=== PATIENT | male | born 1955 | race Caucasian/White ===

== ENCOUNTER 2017-07-20 03:58 | Inpatient (IN) ==
[2017-07-20] MEDS ORDERED: *HR* HYDROcodone/Acet 5/325 mg TABLET PO ONE (04:23)
[2017-07-20] MEDS ORDERED: Aspirin 81 MG TAB.CHEW PO ONE (04:31)
[2017-07-20] MEDS ORDERED: 0.9 % Sodium Chloride 1,000 ML IVC ONE ×3 (04:53→06:23)
[2017-07-20] MEDS ORDERED: *HR* FentaNYL (PF) 100 MCG/2 ML VIAL IVP ONE ×5 (04:55→17:34)
--- NOTE | 2017-07-20 04:58 | Emergency Department Note ---
Disposition Clinical Impression: Community acquired pneumonia Qualifiers: Laterality: right Lung location: lower lobe of lung Qualified Code(s): J18.1 - Lobar pneumonia, unspecified organism Disposition: Admitted As Inpatient Condition: Fair Referrals: Maile Quiroz CNP [Primary Care Provider] - Forms: ED Satisfaction Letter Time of Disposition: 06:15 SOB HPI - General Chief Complaint: ED Shortness of Breath/Dyspnea Stated Complaint: KARMEN Time Seen by Provider: 07/20/17 04:17 Source: patient, EMS Limitations: no limitations Nursing Notes Reviewed: Yes Vital Signs Reviewed: Yes - History of Present Illness Pt Subjective Complaint: shortness of breath Onset (ago): day(s) Context: recent illness (influenz dx two weeks ago) Consistency/Duration: gradually worsening Improves with: oxygen Worsens with: movement, coughing Known history of: other (recent influenza) Associated symptoms: Reports: chest pain (right lateral), pain with inspiration , fever, cough, polyuria, diaphoresis, abdominal pain. Denies: wheezing, sputum production, orthopnea, lower extremity pain, palpitations, hemoptysis, nausea/vomiting Treatment prior to arrival: oxygen, other (EMS) Cough present: Yes Cough Description: Voluntary Cough Frequency: Intermittent Sputum production: No - Related Data Home Medications Medication Instructions Recorded Confirmed Esomeprazole Magnesium [Nexium 20 mg PO DAILY 01/10/17 01/10/17 24Hr] Fish Oil/Dha/Epa [Fish Oil 1,200 1 tab PO DAILY 01/10/17 01/10/17 mg Fish Oil] Mv-Mn/FA/Vit K/Lycop/Lut/Coq10 1 tab PO DAILY 01/10/17 01/10/17 [Daily Multivitamin Capsule] Turmeric Root Extract [Turmeric] 500 mg PO DAILY 01/10/17 01/10/17 Previous Rx's Medication Instructions Recorded OxyCODONE/APAP 5/325 [Percocet 1 each PO Q6HR PRN #14 tablet 01/10/17 5/325 MG] Allergies Allergy/AdvReac Type Severity Reaction Status Date / Time No Known Allergies Allergy Verified 01/10/17 12:27 All systems ED: reviewed and negative except as stated. Review of Systems: As Per HPI Constitutional: Reports: as per HPI Eyes: Denies: eye discharge ENT ED: Denies: throat pain Cardiovascular: Reports: as per HPI Respiratory: Reports: as per HPI Gastrointestinal: Reports: as per HPI. Denies: diarrhea, constipation Genitourinary: Reports: as per HPI, frequency Musculoskeletal: Denies: back pain, neck pain Integumentary: Denies: rash Neurological: Denies: headache Psychiatric: Denies: anxiety Endocrine: Denies: fatigue Hematological/Lymphatic: Denies: easy bleeding Allergic/Immunologic: Denies: facial swelling Past Medical History - Past Medical History Medical history: Reports: cancer, other Psychiatric history: Reports: no psych history - Social History Smoking Status: Never smoker Smokeless Tobacco Status: No Alcohol use: Reports: none Drug use: Reports: none Physical Exam - General Limitations: no limitations General appearance: alert, in no apparent distress - Head Head exam: normocephalic - Eye Eye exam: Present: EOMI - ENT ENT exam: normal oropharynx, mucous membranes moist - Neck Neck exam: Present: full ROM - Chest Chest inspection: Present: symmetric chest wall rise, tenderness (right lateral) - Respiratory Respiratory exam: Present: normal lung sounds bilaterally. Absent: respiratory distress, wheezes - Cardiovascular Cardiovascular exam: Present: normal rhythm, tachycardia - Abdominal Exam Abdominal exam: Present: soft, tenderness Abdominal tenderness: Present: RUQ - Extremities Exam Extremities exam: Present: normal inspection, full ROM, normal capillary refill. Absent: pedal edema - Back Exam Back exam: Present: normal inspection, full ROM. Absent: tenderness, CVA tenderness (R), CVA tenderness (L) - Neurological Exam Neurological exam: Present: alert, oriented X3 - Psychiatric Psychiatric exam: Present: normal affect, normal mood - Skin Skin exam: Present: warm, dry, intact, normal color. Absent: rash, cyanosis, diaphoresis Course Course Narrative: Patient is a 61-year-old nonsmoker, that presents with difficulty breathing x 2days worse tonight. Patient states that he was diagnosed with influenza approximately 2 weeks ago and his primary care provider's office. He was treated with Tamiflu. EMR does show positive influenza B approximate from 2017 He describes his symptoms have been improving, however yesterday he started to have some difficulty breathing, with right-sided chest pain worse with breathing. He has also had subjective fevers, and chills, near syncopal symptoms, and sweating. He describes having some diffuse abdominal pain, earlier that has since resolved. His SOB and chest pain is not worsened with exertion. No substernal CP, nausea, or radiation to his neck or UE. He states his cough has been improving but is now worsening. He denies any hemoptysis, sputum production, confusion, lower extremity swelling. Considering pneumonia, 2 view CXR ordered. Analgesics ordered. - Reevaluation(s) Reevaluation #1: Patient discussed with Dr. Robins, who had reviewed EKG. Patient has sinus tach with 107, with moderate ST depression that appears to be new when compared to previous EKG from 6 years ago. We will order an additional cardiac workup. On reexamination, patient's pain is localized over his right lateral chest wall , right upper quadrant. Other than that, patient denies any GI symptoms. He does mention that he has been urinating more often than normal, but counters that he has also been drinking more fluids due to his recent influenza. He has no CVA tenderness. Time: 04:32 Reevaluation #2: Patient's lab work is still pending. However his chest x-ray does show right lower lobe pneumonia. He denies any recent hospital admissions. I will order additional septic workup, and plan for fluids and antibiotics. Patient still appears uncomfortable due to pain, IV analgesics ordered. Will consider admission. Time: 04:58 Reevaluation #3: Pt has elevated WBC of 19.5. Critical troponin, and EKG changes. however his CP is pleuritic. Discussed with Dr. robins who agreed for admission. Plan will be to page hospitalists for admission. Time: 06:04 Additional Reevaluation(s): 06:25 Pt has received Fentanyl which had helped. He does have some persisting pain. His last BP is 93/76. Fluids are running. Will order Toradol to help with his pain as well, continue fluids and place a second IV. Pt discussed with and accepted by hospitalist Dr. Bose Vital Signs Temperature 98.6 F 07/20/17 04:03 Pulse Rate 108 07/20/17 04:03 Respiratory Rate 16 07/20/17 04:03 Blood Pressure 110/67 07/20/17 04:03 O2 Sat by Pulse Oximetry 93 07/20/17 04:03 Temperature 98.6 F 07/20/17 04:03 Pulse Rate 96 07/20/17 06:02 Respiratory Rate 20 07/20/17 06:02 Blood Pressure 92/63 07/20/17 06:02 O2 Sat by Pulse Oximetry 95 07/20/17 06:02 Oxygen Delivery Oxygen Delivery Room Air Shortness of Breath/Dyspnea - MDM Narrative Medical decision making narrative: Chest X-Ray 07/20/17 04:23 IMPRESSION: Right lower lobe pneumonia. D/ / Ector Shirley MD / Ector Shirley MD Interpreting Provider: Ector Shirley MD Laboratory Tests 07/20/17 07/20/17 07/20/17 05:29 05:29 05:29 WBC 19.5 H RBC 4.84 Hgb 13.5 Hct 40.6 MCV 83.9 MCH 27.9 L MCHC 33.3 RDW 12.6 Plt Count 306 MPV 10.5 Immature Plt Fraction 4.7 PT 13.8 H INR 1.3 APTT 25.8 L Sodium 136 Potassium 3.6 Chloride 106 Carbon Dioxide 20 L BUN 16 Creatinine 1.21 Est GFR ( Amer) > 60 Est GFR (Non-Af Amer) > 60 BUN/Creatinine Ratio 13 Glucose 140 H Calculated Osmolality 285 Lactic Acid Calcium 8.7 Total Bilirubin 1.2 H Direct Bilirubin 0.4 H Indirect Bilirubin 0.8 AST 26 ALT 42 Alkaline Phosphatase 105 H Troponin I 0.04 H* Serum Total Protein 6.7 Albumin 3.5 Globulin 3.2 Albumin/Globulin Ratio 1.1 Lipase 15 07/20/17 05:29 WBC RBC Hgb Hct MCV MCH MCHC RDW Plt Count MPV Immature Plt Fraction PT INR APTT Sodium Potassium Chloride Carbon Dioxide BUN Creatinine Est GFR ( Amer) Est GFR (Non-Af Amer) BUN/Creatinine Ratio Glucose Calculated Osmolality Lactic Acid 1.9 Calcium Total Bilirubin Direct Bilirubin Indirect Bilirubin AST ALT Alkaline Phosphatase Troponin I Serum Total Protein Albumin Globulin Albumin/Globulin Ratio Lipase - Lab Data Lab results reviewed: Yes I reviewed the patient's lab results. Result diagrams: 07/20/17 05:29 07/20/17 05:29 Lab Results 07/20/17 07/20/17 07/20/17 Range/Units 05:29 05:29 05:29 WBC 19.5 H (4.3-11.1) K/mcL RBC 4.84 (4.19-5.50) M/mcL Hgb 13.5 (12.9-16.9) g/dL Hct 40.6 (37.5-50.1) % MCV 83.9 (83.0-100.0) fL MCH 27.9 L (28.0-33.3) pg MCHC 33.3 (31.6-35.5) g/dL RDW 12.6 (11.5-14.5) % Plt Count 306 (140-400) K/mcL MPV 10.5 (9.4-12.4) fL Seg Neutrophils % 72.0 % Band Neutrophils % 16.0 H (0-4) % Lymphocytes % 6.0 % Monocytes % 4.0 % Metamyelocytes % 2.0 H (0) % Neutrophils # 17.2 H (1.6-8.9) K/mcL Lymphocytes # 1.2 (0.6-4.6) K/mcL Monocytes # 0.8 (0.0-1.3) K/mcL Reactive Lymphocytes Present A (Not Present) Toxic Granulation Present A (Not Present) Platelet Estimate Normal (Normal) Immature Plt Fraction 4.7 (1.1-6.1) % PT 13.8 H (9.4-12.1) Seconds INR 1.3 APTT 25.8 L (26.0-36.0) Seconds Sodium 136 (136-145) mEq/L Potassium 3.6 (3.5-5.1) mEq/L Chloride 106 (98-107) mEq/L Carbon Dioxide 20 L (23-29) mEq/L BUN 16 (6-20) mg/dL Creatinine 1.21 (0.70-1.30) mg/dL Est GFR ( Amer) > 60 (> 60) Est GFR (Non-Af Amer) > 60 (> 60) BUN/Creatinine Ratio 13 (6-26) Glucose 140 H (70-105) mg/dL Calculated Osmolality 285 (280-300) Lactic Acid (0.5-2.2) mmol/L Calcium 8.7 (8.6-10.3) mg/dL Total Bilirubin 1.2 H (0.3-1.0) mg/dL Direct Bilirubin 0.4 H (0.0-0.2) mg/dL Indirect Bilirubin 0.8 (0.0-1.2) mg/dL AST 26 (13-39) Units/L ALT 42 (7-52) Units/L Alkaline Phosphatase 105 H (34-104) Units/L Troponin I 0.04 H* (< 0.04) ng/mL Serum Total Protein 6.7 (6.4-8.9) g/dL Albumin 3.5 (3.5-5.7) g/dL Globulin 3.2 (2.4-3.5) g/dL Albumin/Globulin Ratio 1.1 (1.1-2.2) Lipase 15 (11-82) Units/L //18 Range/Units 05:29 WBC (4.3-11.1) K/mcL RBC (4.19-5.50) M/mcL Hgb (12.9-16.9) g/dL Hct (37.5-50.1) % MCV (83.0-100.0) fL MCH (28.0-33.3) pg MCHC (31.6-35.5) g/dL RDW (11.5-14.5) % Plt Count (140-400) K/mcL MPV (9.4-12.4) fL Seg Neutrophils % % Band Neutrophils % (0-4) % Lymphocytes % % Monocytes % % Metamyelocytes % (0) % Neutrophils # (1.6-8.9) K/mcL Lymphocytes # (0.6-4.6) K/mcL Monocytes # (0.0-1.3) K/mcL Reactive Lymphocytes (Not Present) Toxic Granulation (Not Present) Platelet Estimate (Normal) Immature Plt Fraction (1.1-6.1) % PT (9.4-12.1) Seconds INR APTT (26.0-36.0) Seconds Sodium (136-145) mEq/L Potassium (3.5-5.1) mEq/L Chloride (98-107) mEq/L Carbon Dioxide (23-29) mEq/L BUN (6-20) mg/dL Creatinine (0.70-1.30) mg/dL Est GFR ( Amer) (> 60) Est GFR (Non-Af Amer) (> 60) BUN/Creatinine Ratio (6-26) Glucose (70-105) mg/dL Calculated Osmolality (280-300) Lactic Acid 1.9 (0.5-2.2) mmol/L Calcium (8.6-10.3) mg/dL Total Bilirubin (0.3-1.0) mg/dL Direct Bilirubin (0.0-0.2) mg/dL Indirect Bilirubin (0.0-1.2) mg/dL AST (13-39) Units/L ALT (7-52) Units/L Alkaline Phosphatase (34-104) Units/L Troponin I (< 0.04) ng/mL Serum Total Protein (6.4-8.9) g/dL Albumin (3.5-5.7) g/dL Globulin (2.4-3.5) g/dL Albumin/Globulin Ratio (1.1-2.2) Lipase (11-82) Units/L - Radiology Data Radiology results reviewed: Yes I reviewed the patient's radiology results. - EKG Data EKG attestation: Yes I reviewed and interpreted this EKG. EKG results narrative: Sinus tach with ventricular rate of 107, KS interval 109, QRS duration 85, QT [address] and QTC [address] depression, when compared with previous EKG from 2012.
[2017-07-20] MEDS ORDERED: cefTRIAXone 1,000 MG in Water for inj. (sterile) 20 ML 10 ML IVP ONE (05:31)
[2017-07-20 05:44] LABS: Hematocrit 40.6 % (37.5-50.1); Hemoglobin 13.5 g/dL (12.9-16.9); Immature Platelets 4.7 % (1.1-6.1); Mean Corpuscular HGB Conc 33.3 g/dL (31.6-35.5); Mean Corpuscular Hemoglobin 27.9 pg (28.0-33.3); Mean Corpuscular Volume 83.9 fL (83.0-100.0); Mean Platelet Volume 10.5 fL (9.4-12.4); Platelet Count 306 K/mcL (140-400); Red Blood Count 4.84 M/mcL (4.19-5.50); Red Cell Distribution Width 12.6 % (11.5-14.5)
[2017-07-20 05:50] LABS: INR 1.3; Prothrombin Time 13.8 Seconds (9.4-12.1)
[2017-07-20 05:52] LABS: Activated Partial Thrombo Time 25.8 Seconds (26.0-36.0)
[2017-07-20 06:07] LABS: Alanine Aminotransferase 42 Units/L (7-52); Albumin 3.5 g/dL (3.5-5.7); Albumin/Globulin Ratio 1.1 (1.1-2.2); Alkaline Phosphatase 105 Units/L (34-104); Aspartate Amino Transferase 26 Units/L (13-39); BUN/Creatinine Ratio 13 (6-26); Bilirubin,Direct 0.4 mg/dL (0.0-0.2); Bilirubin,Indirect 0.8 mg/dL (0.0-1.2); Bilirubin,Total 1.2 mg/dL (0.3-1.0); Blood Urea Nitrogen 16 mg/dL (6-20); Calcium 8.7 mg/dL (8.6-10.3); Carbon Dioxide 20 mEq/L (23-29); Chloride 106 mEq/L (98-107); Globulin 3.2 g/dL (2.4-3.5); Glucose 140 mg/dL (70-105); Lipase 15 Units/L (11-82); Osmolality,Calculated 285 (280-300); Potassium 3.6 mEq/L (3.5-5.1); Sodium 136 mEq/L (136-145); Total Protein 6.7 g/dL (6.4-8.9); eGFR For African Americans > 60 (> 60); eGFR For Non-African Americans > 60 (> 60)
[2017-07-20 06:09] LABS: Troponin I 0.04 ng/mL (< 0.04)
[2017-07-20] MEDS ORDERED: Ondansetron 4 MG/2 ML VIAL IVP ONE (06:09)
[2017-07-20 06:19] LABS: Lymphocytes # 1.2 K/mcL (0.6-4.6); Monocytes # 0.8 K/mcL (0.0-1.3); Neutrophils # 17.2 K/mcL (1.6-8.9); Platelet Estimate Normal (Normal)
[2017-07-20 06:20] LABS: Reactive Lymphocytes Present (Not Present); Toxic Granulation Present (Not Present)
[2017-07-20] MEDS ORDERED: Ketorolac 15 MG/ML VIAL IVP ONE (06:23)
--- NOTE | 2017-07-20 06:26 | Emergency Department Note ---
Attestation Statement - Attestation Attestation: I, Silverio Robins MD, personally evaluated this patient and discussed their management with the midlevel provicer, PAC/VICE PRESIDENT OF NURSING. I reviewed the midlevel provider 's note and agree with the documented findings, medical decision making, and plan of care. 61-year-old male presents to the emergency department with a complaint of cough and fever and shortness of breath for the past 2 days. Nonproductive cough. Pleuritic right lower chest pain with inspiration and expiration. Patient had influenza 2 weeks ago but states he seemed to have gotten over that and then just got sick again over the past 2 days. On examination patient is a well-developed well-nourished well-appearing male in no acute distress. He is alert and oriented 3. There is no cyanosis or diaphoresis. Chest is nontender to palpation. Breath sounds are decreased in the right base with a few rales. No wheezes noted. Heart regular with a mild tachycardia. Abdomen is soft and nontender with normal bowel sounds. No pedal edema. Labs reviewed. WBC 19.5. Troponin 0.04. Lactic acid 1.9. Chest x-ray shows right lower lobe pneumonia. EKG shows sinus tachycardia with a heart rate 107, short [place] interval, ST segment depression in V3 through V6. The hospitalist, Dr. Bose, was consulted and accepted admission of the patient.
--- NOTE | 2017-07-20 08:12 | Emergency Department Note ---
START Narrative - START START: Nursing notes and vitals reviewed. Patient has already been admitted - accepted by Dr. Ruth at 06:15. He is waiting for a bed. His BP has been stable at 90-94 systolic. He is currently receiving his 3rd bolus of normal saline. Heart rate stable in the 80's, O2 sats stable 95% on room air. His pain is returning - right lateral lower ribs / lung. He has requested pain medication. There are no floor orders yet. He has had one dose of fentanyl - 25mcg and one dose of toradol during his stay. Will order a small dose of fentanyl as the nurse states that this was effective in treating his pain a few hours ago. O2 added at 2LPM and patient placed on monitor. He is in room 11 - directly beside my workstation. 08:12 His room is now ready.
[2017-07-20] MEDS ORDERED: Naloxone 0.4 MG/ML INJ IVP PRN (08:14)
--- NOTE | 2017-07-20 08:23 | Internal Med History&Physical ---
Date of Encounter: 07/20/17 Time of Encounter: 08:23 Assessment and Plan (1) Sepsis Current visit: Yes Status: Acute with tachycardia (HR 108), hypotension (SBPs in 90's) and elevated WBC (19K). Lactic acid 1.9. Recently completed treatment for influenza B. CXR with right lower lobe pneumonia. Received 3 L IV fluids and ceftriaxone in the ED. Heart rate improved, BP remains soft/borderline but overall hemodynamically stable. Continue IV fluids, change ATB to Levaquin. Blood, urine, sputum culture pending. Continue treating pneumonia as noted below. Closely monitor vital signs. Qualifiers: Sepsis type: sepsis due to unspecified organism Qualified Code(s): A41.9 - Sepsis, unspecified organism (2) Community acquired pneumonia Current visit: Yes Status: Acute symptomatic with SOB, fever and non-productive cough. CXR with RLL pneumonia. Received IV ceftriaxone in the ED. No recent ATB use, no recent hospitalizations. Change ATB to Levaquin, add mucinex, duonebs. Resp PCR, urinary antigens and sputum cx pending. De-escalate ATB as clinically improves and/or cx finalizes. Qualifiers: Laterality: right Lung location: lower lobe of lung Qualified Code(s): J18.1 - Lobar pneumonia, unspecified organism (3) Dyspnea Current visit: Yes Status: Acute patient reports unable to take deep breath; says "I feel like I can't get air in ". With associated right rib pain that radiates to back. Wells score 2.5 ( tachycardia, hx skin malignancy). Suspect dyspnea secondary to pneumonia, have low suspicion for pulmonary embolism however he remains hypotensive despite aggressive IV fluid resuscitation. D-dimer pending, check CTA if elevated. Qualifiers: Dyspnea type: acute respiratory distress Qualified Code(s): R06.03 - Acute respiratory distress (4) Elevated troponin Current visit: Yes Status: Acute initial troponin 0.04, denies CP. No known CAD. Reports negative stress test many years ago. Received ASA in ED. EKG with reported ST depression that appears to be new from previous EKG (unable to locate EKG in ED). Elevated troponin possibly secondary to demand ischemia with sepsis. Continue to cycle troponins, check echo. Repeat EKG and compare to one in ED, NPO at midnight if changes noted on repeat EKG. (5) DVT prophylaxis Current visit: Yes Status: Acute heparin Internal Medicine - H&P: HPI History of present illness: Mr. Mejía is a 61 year old male with PMH GERD who presented to [facility] on 07/20/2017 with complaints of shortness of breath, fevers and right rib pain. He was found to be in sepsis with acute right lower lobe pneumonia and was admitted for IV ATB/fluids and further workup/treatment. Information obtained from chart review and patient report. Patient reports being diagnosed with the flu approximately 4 weeks ago. Since failure to the couple days post hemagglutinin started feeling better. Says he started feeling sick couple days ago with cough, generalized weakness/malaise and fevers; took the rest of his Tamiflu at that time. Says he developed a fever overnight which appeared to be relieved with ibuprofen. Says he woke up with severe shortness of breath and right rib pain that radiates to his back. He is unable to take a deep breath. Nothing makes better or worse. Denies chest pain. Has a nonproductive cough. Past Med Surg Social Fam HX - Past Medical History Medical history: cancer, other Psychiatric history: no psych history - Past Surgical History Surgical History: non-contributory - Social History Smoking Status: Never smoker Smokeless Tobacco Status: No Alcohol use: none Drug use: none - Additional Family History Additional family history: Reviewed and noncontributory per patient Internal Medicine - H&P: Meds Esomeprazole Magnesium [Nexium 24Hr] 20 mg PO DAILY 01/10/17 [History] Fish Oil/Dha/Epa [Fish Oil 1,200 mg Fish Oil] 1 tab PO DAILY 01/10/17 [History] Mv-Mn/FA/Vit K/Lycop/Lut/Coq10 [Daily Multivitamin Capsule] 1 tab PO DAILY 01/10 [History] OxyCODONE/APAP 5/325 [Percocet 5/325 MG] 1 each PO Q6HR PRN #14 tablet 01/10/17 [Rx] Turmeric Root Extract [Turmeric] 500 mg PO DAILY 01/10/17 [History] 3 Allergy/AdvReac Type Severity Reaction Status Date / Time No Known Allergies Allergy Verified 01/10/17 12:27 All Systems PM: A 10-system review of systems was performed and is negative for pertinent findings except as documented above in the HPI. - Constitutional Constitutional: fever(s), malaise, weakness, no chills, no night sweats - EENT Eyes: no change in vision, no discharge, no pain, no photophobia Ears: no ear discharge, no ear pain, no tinnitus Nose, mouth and throat: no dysphagia, no nasal discharge, no neck pain, no sore throat - Cardiovascular Cardiovascular ROS IM: no chest pain, no diaphoresis, no dyspnea, no lightheadedness, no palpitations, no syncope - Respiratory Respiratory: cough, dyspnea, pain with cough, no wheezing, no excessive phlegm production - Gastrointestinal Gastrointestinal: no abdominal pain, no diarrhea, no hematemesis, no hematochezia, no melena, no nausea, no vomiting - Musculoskeletal Musculoskeletal ROS IM: no numbness, no tingling - Integumentary Integumentary IM: no rash, no unusual bruising - Neurological Neurological ROS: no confusion, no convulsions, no focal weakness, no numbness, no tingling, no tremor(s) - Hematologic/Lymphatic Hematologic/Lymphatic: no easy bruising - Constitutional Vitals: Temp Pulse Resp BP Pulse Ox 98.6 F 97 18 98/74 99 07/20/17 04:03 07/20/17 08:15 07/20/17 08:15 07/20/17 08:15 07/20/17 08:17 General appearance: Present: mild distress, A&O X 3 - Head Head exam: Present: atraumatic, normocephalic - Eye Eye exam: Present: PERRL, conjuntiva pink, sclera anicteric Pupils: Present: PERRL - Neck Neck exam general surgery: Present: supple, trachea midline. Absent: lymphadenopathy - Respiratory Respiratory exam: Present: chest wall tenderness (Right lower chest wall tenderness.), decreased breath sounds, rhonchi (Bilateral lobes diminished with scant rhonchi, worse on the right). Absent: accessory muscle use, wheezes - Cardiovascular Cardiovascular exam: Present: +S1, +S2, tachycardia. Absent: diastolic murmur, gallop, rubs, systolic murmur - GI/Abdominal GI/Abdominal exam: Present: normal bowel sounds, soft, no peritoneal signs. Absent: distended, tenderness - Extremities Exam Extremities exam: Present: warm, radial pulses palpable and symmetrical. Absent : calf tenderness, cyanotic, pedal edema - Neurological Exam Neurological exam: Present: CN II-XII intact, oriented X3, no focal deficits. Absent: pronater drift, facial droop, speech deficit - Skin Skin exam: Present: dry, intact Internal Med - H&P Results - Labs CBC & Chem 7: 07/20/17 05:29 07/20/17 05:29
[2017-07-20] MEDS ORDERED: Levofloxacin 750 MG/150 ML 750 MG/150 ML BAG IVPB SCH (09:00)
[2017-07-20] MEDS: 0.9 % Sodium Chloride 1,000 ML IVC SCH (09:54)
[2017-07-20] MEDS: GuaiFENesin/Dextromethorphan TABLET PO SCH ×2 (09:55→21:21)
[2017-07-20] MEDS ORDERED: *HR* Heparin 5,000 UNIT/ML VIAL IVP PRN (11:10)
[2017-07-20] MEDS ORDERED: *HR* Heparin 5,000 UNIT/ML VIAL IVP ONE (11:10)
[2017-07-20] MEDS: Ipratropium/Albuterol Neb 3 ML IH SCH ×3 (11:43→21:00)
[2017-07-20] MEDS ORDERED: *HR* OxyCODONE Immed Rel 5 MG TABLET PO PRN ×2 (12:21→15:10)
[2017-07-20] MEDS: Heparin 25,000 UNIT/500 ML D5W 25,000 UNIT/500 ML BAG IVC SCH (12:34)
--- NOTE | 2017-07-20 13:33 | Event Note ---
Date of Encounter: 07/20/17 Time of Encounter: 13:30 Chest CTA with probable pulmonary embolus supplying the lateral basal segment of the left lower lobe with area of peripheral infarction. Heparin gtt started. Appears to be unprovoked. Bilateral lower ext dopplers pending
[2017-07-20] MEDS ORDERED: *HR* Heparin 5,000 UNIT/ML VIAL SQ SCH (14:00)
[2017-07-20 15:01] LABS: Hematocrit 39.1 % (37.5-50.1); Hemoglobin 12.6 g/dL (12.9-16.9); Mean Corpuscular HGB Conc 32.2 g/dL (31.6-35.5); Mean Corpuscular Hemoglobin 27.5 pg (28.0-33.3); Mean Corpuscular Volume 85.4 fL (83.0-100.0); Mean Platelet Volume 11.4 fL (9.4-12.4); Platelet Count 307 K/mcL (140-400); Red Blood Count 4.58 M/mcL (4.19-5.50); Red Cell Distribution Width 13.1 % (11.5-14.5)
[2017-07-20 15:03] LABS: INR 1.9; Prothrombin Time 20.3 Seconds (9.4-12.1)
[2017-07-20] MEDS ORDERED: *HR* FentaNYL (PF) 100 MCG/2 ML VIAL IVP PRN (15:10)
[2017-07-20] MEDS ORDERED: Ketorolac 30 MG/ML VIAL IVP ONE (15:13)
[2017-07-20] MEDS: *HR* HYDROmorphone 20 MG/20 ML PCA IVC PRN (18:21)
[2017-07-20] MEDS: *HR* Heparin 5,000 UNIT/ML VIAL IVP PRN (18:44)
[2017-07-20] MEDS ORDERED: *HR* HYDROmorphone (PF) 1 MG/ML SYRINGE IVP ONE (18:53)
[2017-07-20] MEDS ORDERED: *HR* Promethazine 25 MG/ML VIAL IVP PRN (19:43)
[2017-07-20] MEDS ORDERED: *HR* Promethazine 25 MG/ML VIAL ONE (20:11)
[2017-07-21] MEDS: Ipratropium/Albuterol Neb 3 ML IH SCH ×7 (00:08→23:49)
[2017-07-21 00:46] LABS: Hematocrit 37.8 % (37.5-50.1); Hemoglobin 12.5 g/dL (12.9-16.9); Mean Corpuscular HGB Conc 33.1 g/dL (31.6-35.5); Mean Corpuscular Hemoglobin 27.8 pg (28.0-33.3); Mean Platelet Volume 10.7 fL (9.4-12.4); Platelet Count 315 K/mcL (140-400); Red Cell Distribution Width 13.5 % (11.5-14.5)
[2017-07-21 01:10] LABS: Albumin 3.5 g/dL (3.5-5.7); Albumin/Globulin Ratio 1.1 (1.1-2.2); Bilirubin,Direct 0.2 mg/dL (0.0-0.2); Bilirubin,Indirect 0.4 mg/dL (0.0-1.2); Bilirubin,Total 0.6 mg/dL (0.3-1.0); Globulin 3.2 g/dL (2.4-3.5); Total Protein 6.7 g/dL (6.4-8.9)
[2017-07-21 01:24] LABS: BUN/Creatinine Ratio 18 (6-26); Blood Urea Nitrogen 21 mg/dL (6-20); Calcium 8.2 mg/dL (8.6-10.3); Carbon Dioxide 20 mEq/L (23-29); Chloride 103 mEq/L (98-107); Glucose 146 mg/dL (70-105); Osmolality,Calculated 284 (280-300); Potassium 4.5 mEq/L (3.5-5.1); Sodium 134 mEq/L (136-145); eGFR For African Americans > 60 (> 60); eGFR For Non-African Americans > 60 (> 60)
[2017-07-21] MEDS: Acetaminophen 325 MG TABLET PO PRN ×3 (02:30→18:17)
[2017-07-21 02:46] LABS: Bilirubin,Urine Negative (Negative); Blood,Urine Small (Negative); Clarity,Urine Clear (Clear); Color,Urine Dark Yellow (Yellow); Glucose,Urine (UA) Normal (Normal); Ketones,Urine Negative (Negative); Leukocyte Esterase,Urine Negative (Negative); Nitrite,Urine Negative (Negative); Protein,Urine 30 mg/dL (Neg-Trace); Specific Gravity,Urine > 1.030 (1.010-1.025); Urobilinogen,Urine Normal (Normal)
[2017-07-21 02:48] LABS: Bacteria,Urine None Seen per hpf (None-Few); Hyaline Casts,Urine None Seen per lpf (None-Few); Squamous Epithelial Cell,Urine Moderate per lpf (None-Few)
[2017-07-21] MEDS: 0.9 % Sodium Chloride 1,000 ML IVC SCH ×2 (05:58→10:44)
[2017-07-21] MEDS ORDERED: 0.9 % Sodium Chloride 1,000 ML IVC ONE (07:27)
[2017-07-21] MEDS: GuaiFENesin/Dextromethorphan TABLET PO SCH ×2 (09:34→21:02)
[2017-07-21] MEDS: Piperacillin/Tazobactam 3.375 GM in 0.9 % Sodium Chloride Mini Bag 100 ML IVPB SCH ×2 (10:15→16:34)
--- NOTE | 2017-07-21 10:21 | Internal Med Progress Note ---
Date of Encounter: 07/21/17 Time of Encounter: 10:19 - Assessment and plan (1) Sepsis Current Visit: Yes Status: Acute Assessment and plan: with tachycardia (HR 108), hypotension (SBPs in 90's) and elevated WBC (19K). Lactic acid 1.9. Recently completed treatment for influenza B. CXR with right lower lobe pneumonia. Received 3 L IV fluids and ceftriaxone in the ED. With persistent fevers and tachycardia on 07/21; broaden ATB coverage to Vanco, zosyn and Levaquin. Refusing resp PCR, Urinary antigens negative. Blood cx NGTD. Repeat lactic acid, increase IV fluids. Monitor closely. Qualifiers: Sepsis type: sepsis due to unspecified organism Qualified Code(s): A41.9 - Sepsis, unspecified organism (2) Community acquired pneumonia Current Visit: Yes Status: Acute Assessment and plan: symptomatic with SOB, fever and non-productive cough. CXR with RLL pneumonia. Received IV ceftriaxone in the ED. No recent ATB use, no recent hospitalizations. Change ATB to Levaquin, add mucinex, duonebs. Refusing resp PCR, urinary antigens negative. Cont Vanco, zosyn, levaquin. De-escalate ATB as clinically improves and/or cx finalizes. Qualifiers: Laterality: right Lung location: lower lobe of lung Qualified Code(s): J18.1 - Lobar pneumonia, unspecified organism (3) Pulmonary embolism and infarction Current Visit: Yes Status: Acute Assessment and plan: Chest CTA with probable pulmonary embolus supplying the lateral basal segment of LLL with area of peripheral infarction identified. TTE with normal EF and no evidence of right ventricular strain. Appears unprovoked; only risk factor is remote skin malignancy. Consult Oncology. Cont heparin gtt (4) Elevated troponin Current Visit: Yes Status: Acute Assessment and plan: troponin peaked at 0.05 and trended down. Denies chest pain. TTE with EF 55%, no wall motion abnormalities. Possibly secondary to demand ischemia with pulmonary embolism and PNA. Hold on stress test at this time. Repeat EKG (5) DVT prophylaxis Current Visit: Yes Status: Acute Assessment and plan: heparin gtt - Subjective Interval history: Seen and examined at bedside, he is still c/o 10/10 right side pain that radiates to back. Described as sharp, worse with coughing. Dilaudid BEER COIL CLEANER is helping to take edge off. Still with non-productive cough - Constitutional Vitals: Temp Pulse Resp BP Pulse Ox 98.9 F 103 18 100/64 94 07/21/17 07:17 07/21/17 07:17 07/21/17 07:25 07/21/17 07:17 07/21/17 07:25 General appearance: Present: mild distress, A&O X 3 - Head Head exam: Present: atraumatic, normocephalic - Eye Eye exam: Present: PERRL, conjuntiva pink, sclera anicteric Pupils: Present: PERRL - Neck Neck exam general surgery: Present: supple, trachea midline. Absent: lymphadenopathy - Respiratory Respiratory exam: Present: decreased breath sounds, rales, rhonchi. Absent: accessory muscle use, wheezes - Cardiovascular Cardiovascular exam: Present: +S1, +S2, tachycardia. Absent: diastolic murmur, gallop, rubs, systolic murmur - GI/Abdominal GI/Abdominal exam: Present: normal bowel sounds, soft, no peritoneal signs. Absent: distended, tenderness - Extremities Exam Extremities exam: Present: warm, radial pulses palpable and symmetrical. Absent : calf tenderness, cyanotic, pedal edema - Neurological Exam Neurological exam: Present: CN II-XII intact, oriented X3, no focal deficits. Absent: pronater drift, facial droop, speech deficit - Skin Skin exam: Present: dry, intact Internal Medicine: Result - Labs CBC & Chem 7: 07/21/17 00:21 07/21/17 00:21 Labs: Short CBC 07/20/17 07/21/17 Range/Units 13:41 00:21 WBC 19.0 H 24.4 H (4.3-11.1) K/mcL Hgb 12.6 L 12.5 L (12.9-16.9) g/dL Hct 39.1 37.8 (37.5-50.1) % Plt Count 307 315 (140-400) K/mcL BMP 07/21/17 00:21 Sodium 134 L Potassium 4.5 Chloride 103 Carbon Dioxide 20 L BUN 21 H Creatinine 1.15 Glucose 146 H Calcium 8.2 L Cardiac Enzymes 07/20/17 07/20/17 Range/Units 13:41 18:10 Troponin I 0.05 H* < 0.03 (< 0.04) ng/mL Liver Function 07/21/17 Range/Units 00:21 Total Bilirubin 0.6 (0.3-1.0) mg/dL Direct Bilirubin 0.2 (0.0-0.2) mg/dL AST 24 (13-39) Units/L ALT 35 (7-52) Units/L Alkaline Phosphatase 91 (34-104) Units/L Albumin 3.5 (3.5-5.7) g/dL Urine 07/20/17 Range/Units 20:15 Urine Color Dark Yellow (Yellow) Urine Clarity Clear (Clear) Urine pH 6.0 (5.0-8.0) pH Units Ur Specific [place] > 1.030 H (1.010-1.025) Urine Protein 30 H (Neg-Trace) mg/dL Urine Glucose (UA) Normal (Normal) mg/dL - ABG Interpretation ABG results: PT/INR, D-dimer PT 20.3 Seconds (9.4-12.1) H 07/20/17 13:41 D-Dimer 3317 ng/mLFEU (0-500) H 07/20/17 05:24 - Impressions Impressions Echocardiogram 07/20/17 08:20 Impressions: LVEF 55-60%. Normal left ventricular diastolic function. Normal right ventricular structure and function. No pulmonary hypertension. No significant valvular dysfunction. Left Ventricular Wall Motion: Rest Echo Findings All wall segments showed normal motion. Findings: Study Quality * Technically adequate exam. ECG Findings * Normal sinus rhythm. Left Ventricle * LVEF 55-60%. * Normal left ventricular diastolic function. Right Ventricle * Normal right ventricular structure and function. Left Atrium * Normal left atrial size. Right Atrium * Normal right atrial size. Interatrial Septum * Interatrial septum not well evaluated. Aortic Valve * Trileaflet aortic valve with normal function. Mitral Valve * Normal mitral valve structure and function. Tricuspid Valve * Normal tricuspid valve structure and function. * Estimated RVSP is 26 mmHg. * Estimated RA pressure is 5 mmHg. * No pulmonary hypertension. Pulmonic Valve * Pulmonic valve not well visualized. Aorta * Normally sized aortic root. Pericardium * The pericardium appears normal. IVC * The IVC is not well evaluated. Chest CTA 07/20/17 09:31 IMPRESSION: 1. Probable pulmonary embolus supplying the lateral basal segment of the left lower lobe with area of peripheral infarction identified. 2. Right lower lobe pneumonia. The findings were sent to the Radiology Results Communication [facility] at 9:49 am on 07/20/2017to be communicated to a licensed caregiver. D/ / Ramez Handley / Ramez Handley Interpreting Provider: Ramez Handley Abdomen/Pelvis CT 07/20/17 21:30 IMPRESSION: Right lower lobe consolidation. Recommend follow-up to resolution. Otherwise no acute disease. D/ / Ernesto Payne MD / Ernesto Payne MD Interpreting Provider: Ernesto Payne MD Consult Discharge Plan - Plan Referrals: Maile Quiroz CHIEF RELAY TESTER [Primary Care Provider] -
[2017-07-21] MEDS: *HR* Heparin 5,000 UNIT/ML VIAL IVP PRN (10:28)
[2017-07-21] MEDS: Heparin 25,000 UNIT/500 ML D5W 25,000 UNIT/500 ML BAG IVC SCH (11:49)
[2017-07-21] MEDS: Levofloxacin 750 MG/150 ML 750 MG/150 ML BAG IVPB SCH (14:24)
--- NOTE | 2017-07-21 17:38 | Oncology Inp Consult Note ---
<Keysha Candelaria L - Last Filed: 07/22/17 10:34> Date of Encounter: 07/21/17 Time of Encounter: 15:00 Assessment and Plan (1) Community acquired pneumonia Status: Acute Assessment and plan: CTA revealed Probable pulmonary embolus supplying the lateral basal segment of the left lower lobe with area of peripheral infarction identified and Right lower lobe pneumonia. Bilateral lower extremity dopplers TTE with normal EF and no evidence of right ventricular strain. Mr. Mejía is a nonsmoker, BMI 23, no prior history of DVT/PE with history of excised skin cancer. Dr. Cardenas discussed CTA with radiologist, who agreed with plan of care to discontinue heparin gtt, CTA finding suggestive of PE was not of optimal study and has associated artifact. Tachycardia and hypoxia associated with patients right lower lobe pneumonia. Discussed with hospitalist who may consider repeat CTA. Please refer to Dr. Cardenas's attestation below for additional details. Qualifiers: Laterality: right Lung location: lower lobe of lung Qualified Code(s): J18.1 - Lobar pneumonia, unspecified organism - Data of Consult Patient: new to practice Consult date: 07/21/17 Requesting Physician: Erika Castle CNP Primary Care Provider: Maile Quiroz CNP - Consult Narrative Reason for consult: Probable pulmonary embolus History of present illness: Mr. Mejía is a 61 year old male who presented to the ER with complaints of shortness of breath, fevers and right rib pain. Approximately 4 weeks ago he was diagnosed with influenza, prescribed tamiflu and felt better until a few days prior to his admission with return of his fever, SOB and malaise. He was found to be septic, tachycardic, hypotensive, elevated WBC count, elevated troponin. CXR revealed Right lower lobe pneumonia. CTA revealed Probable pulmonary embolus supplying the lateral basal segment of the left lower lobe with area of peripheral infarction identified and Right lower lobe pneumonia. Bilateral venous doppler revealed normal superficial and deep exam. He was admitted for further septic/CAP workup along with heparin gtt for probable PE. Hematololgy consulted for further PE assessment. Past Med Surg Social Fam HX - Past Medical History Medical history: cancer, other Psychiatric history: no psych history - Past Surgical History Surgical History: non-contributory - Social History Smoking Status: Never smoker Smokeless Tobacco Status: No Alcohol use: none Drug use: none Medications and Allergies Esomeprazole Magnesium [Nexium 24Hr] 20 mg PO DAILY 01/10/17 [History] Fish Oil/Dha/Epa [Fish Oil 1,200 mg Fish Oil] 1 tab PO DAILY 01/10/17 [History] Mv-Mn/FA/Vit K/Lycop/Lut/Coq10 [Daily Multivitamin Capsule] 1 tab PO DAILY 01/10 [History] Turmeric Root Extract [Turmeric] 500 mg PO DAILY 01/10/17 [History] 3 Allergy/AdvReac Type Severity Reaction Status Date / Time No Known Allergies Allergy Verified 01/10/17 12:27 Constitutional: Present: anorexia, chills, fever(s), headache(s), malaise. Absent: frequent falls, weight loss Eyes: Absent: change in vision Cardiovascular: Absent: chest pain, irregular heart rhythm, palpitations Respiratory: Present: cough, dyspnea, chest congestion, pain with cough Gastrointestinal: Absent: abdominal pain, hematemesis, hematochezia, melena, nausea, vomiting Additional comments: denies dysuria or hematuria Musculoskeletal: Present: muscle weakness. Absent: numbness, tingling Integumentary: Absent: wounds Neurological: Absent: focal weakness Hematologic/Lymphatic: Present: as per HPI Oncology - Exam - Constitutional Vitals: Temp Pulse Resp BP Pulse Ox 100.5 F H 119 18 125/69 90 07/21/17 16:18 07/21/17 16:18 07/21/17 16:18 07/21/17 16:18 07/21/17 16:18 General appearance: cooperative, no acute distress, no febrile - Head Head exam: Present: atraumatic - ENT ENT exam: Present: mucous membranes moist - Respiratory Respiratory exam: Present: rhonchi. Absent: respiratory distress - Cardiovascular Cardiovascular exam: Present: RRR, +S1, +S2, tachycardia - GI/Abdominal GI/Abdominal exam: Present: normal bowel sounds, soft, tenderness Additional comments: RUQ abdominal pain worse with coughing - Extremities Exam Extremities exam: Present: normal inspection. Absent: calf tenderness - Neurological Exam Neurological exam: Present: alert, oriented X3, no focal deficits, strengths equal and symetr throughout - Psychiatric Psychiatric exam: Present: normal affect, normal mood - Skin Skin exam: Present: normal color, warm Oncology - Results Labs: Short CBC 07/21/17 Range/Units 00:21 WBC 24.4 H (4.3-11.1) K/mcL Hgb 12.5 L (12.9-16.9) g/dL Hct 37.8 (37.5-50.1) % Plt Count 315 (140-400) K/mcL BMP 07/21/17 00:21 Sodium 134 L Potassium 4.5 Chloride 103 Carbon Dioxide 20 L BUN 21 H Creatinine 1.15 Glucose 146 H Calcium 8.2 L Cardiac Enzymes 07/20/17 Range/Units 18:10 Troponin I < 0.03 (< 0.04) ng/mL Liver Function 07/21/17 Range/Units 00:21 Total Bilirubin 0.6 (0.3-1.0) mg/dL Direct Bilirubin 0.2 (0.0-0.2) mg/dL AST 24 (13-39) Units/L ALT 35 (7-52) Units/L Alkaline Phosphatase 91 (34-104) Units/L Albumin 3.5 (3.5-5.7) g/dL Urine 07/20/17 Range/Units 20:15 Urine Color Dark Yellow (Yellow) Urine Clarity Clear (Clear) Urine pH 6.0 (5.0-8.0) pH Units Ur Specific [place] > 1.030 H (1.010-1.025) Urine Protein 30 H (Neg-Trace) mg/dL Urine Glucose (UA) Normal (Normal) mg/dL Consult Discharge Plan - Plan Referrals: Maile Quiroz CNP [Primary Care Provider] - <Cristhian Cardenas - Last Filed: 07/23/17 08:19> Date of Encounter: 07/21/17 - Data of Consult Requesting Physician: Erika Castle CNP Primary Care Provider: Maile Quiroz CNP - Consult Narrative History of present illness: Mr. Mejía is a 61 year old male Oncology - Exam - Constitutional Vitals: Temp Pulse Resp BP Pulse Ox 97.5 F L 77 18 157/83 95 07/23/17 07:06 07/23/17 07:06 07/23/17 07:44 07/23/17 07:06 07/23/17 07:44 Oncology - Results Labs: Short CBC 07/22/17 07/23/17 Range/Units 07:54 05:29 WBC 25.0 H 25.6 H (4.3-11.1) K/mcL Hgb 12.4 L 11.4 L (12.9-16.9) g/dL Hct 38.2 34.9 L (37.5-50.1) % Plt Count 304 287 (140-400) K/mcL BMP 07/22/17 07:54 Sodium 136 Potassium 4.0 Chloride 106 Carbon Dioxide 22 L BUN 18 Creatinine 0.77 Glucose 109 H Calcium 9.0 - Attending Attestation seen and examined patient and agree with assessment and plan. Reviewed Ct with radiology. suspicion for PE is low. All of the patients symptoms are explainable by his pneumonia. d/c heparin gtt. No need for anticoagulation.
[2017-07-21] MEDS: *HR* HYDROmorphone 20 MG/20 ML PCA IVC PRN (21:36)
[2017-07-22] MEDS: Acetaminophen 325 MG TABLET PO PRN ×2 (00:26→08:43)
[2017-07-22] MEDS: Pantoprazole 40 MG VIAL IVP SCH ×2 (00:26→08:44)
[2017-07-22] MEDS: Ipratropium/Albuterol Neb 3 ML IH SCH ×6 (03:28→23:45)
[2017-07-22] MEDS: Piperacillin/Tazobactam 3.375 GM in 0.9 % Sodium Chloride Mini Bag 100 ML IVPB SCH ×4 (08:42→23:31)
[2017-07-22] MEDS: GuaiFENesin/Dextromethorphan TABLET PO SCH ×2 (08:43→20:13)
[2017-07-22] MEDS: 0.9 % Sodium Chloride 1,000 ML IVC SCH ×2 (08:44→16:37)
[2017-07-22 08:52] LABS: Hematocrit 38.2 % (37.5-50.1); Hemoglobin 12.4 g/dL (12.9-16.9); Mean Corpuscular HGB Conc 32.5 g/dL (31.6-35.5); Mean Corpuscular Hemoglobin 27.6 pg (28.0-33.3); Mean Corpuscular Volume 85.1 fL (83.0-100.0); Platelet Count 304 K/mcL (140-400); Red Blood Count 4.49 M/mcL (4.19-5.50); Red Cell Distribution Width 14.1 % (11.5-14.5)
--- NOTE | 2017-07-22 08:57 | Internal Med Progress Note ---
Date of Encounter: 07/22/17 Time of Encounter: 08:54 - Assessment and plan (1) Sepsis Current Visit: Yes Status: Acute Assessment and plan: with tachycardia (HR 108), hypotension (SBPs in 90's) and elevated WBC (19K) on admission. Lactic acid 1.9. Recently completed treatment for influenza B. CXR with right lower lobe pneumonia. Received 3 L IV fluids and ceftriaxone in the ED. AT coverage broadened to Vanco, zosyn and Levaquin with persistent tachycardia, hypotension and fevers. Refusing resp PCR, Urinary antigens negative. Blood cx NGTD. Cont IV ATB, IV fluids. Monitor closley. Qualifiers: Sepsis type: sepsis due to unspecified organism Qualified Code(s): A41.9 - Sepsis, unspecified organism (2) Community acquired pneumonia Current Visit: Yes Status: Acute Assessment and plan: symptomatic with SOB, fever and non-productive cough. CXR with RLL pneumonia. Received IV ceftriaxone in the ED. No recent ATB use, no recent hospitalizations. Refusing resp PCR, urinary antigens negative. Cont Vanco, zosyn, levaquin. Cont mucinex, duonebs. De-escalate ATB as clinically improves and/or cx finalizes. Pulmonology consulted Qualifiers: Laterality: right Lung location: lower lobe of lung Qualified Code(s): J18.1 - Lobar pneumonia, unspecified organism (3) Acute respiratory failure with hypoxia Current Visit: Yes Status: Acute Assessment and plan: not on home. O2 saturations in the 80s on room air. Requiring 3-4 liters O2 to maintain adequate oxygen saturation; in the setting of pneumonia. Cont treating PNA as noted above. Add steroids, ABG, repeat CTA pending. Pulmonology consulted. (4) Right upper quadrant abdominal pain Current Visit: Yes Status: Acute Assessment and plan: patient reports persistent, severe RUQ pain. Requiring Dilaudid HOT END OPERATOR. ABD CT unremarkable. RUQ US with gallbladder sludge. HIDA scan pending (5) Pulmonary embolism and infarction Current Visit: Yes Status: Acute Assessment and plan: Chest CTA with probable pulmonary embolus supplying the lateral basal segment of LLL with area of peripheral infarction identified. Bilateral lower extremity dopplers TTE with normal EF and no evidence of right ventricular strain. Initially teated with heparin gtt. Evaluated by Oncology who discussed with Radiology and do not suspect true pulmonary embolism. Heparin gtt stopped. Repeat CTA pending (6) Elevated troponin Current Visit: Yes Status: Acute Assessment and plan: troponin peaked at 0.05 and trended down. Denies chest pain. TTE with EF 55%, no wall motion abnormalities. Possibly secondary to demand ischemia with PNA, sepsis. Hold on stress test at this time. (7) DVT prophylaxis Current Visit: Yes Status: Acute Assessment and plan: heparin - Subjective Interval history: Seen and examined at bedside, he is still c/o 10/10 right side pain that radiates to back. Cont to described as sharp, worse with coughing. Dilaudid HOT END OPERATOR is helping to take edge off. Cough is productive a this time however he is not coughing due to ABD pain. Strongly encouraged IS and cough/deep breathing. - Constitutional Vitals: Temp Pulse Resp BP Pulse Ox 98.2 F 114 18 171/99 94 07/22/17 08:11 07/22/17 08:11 07/22/17 08:11 07/22/17 08:11 07/22/17 08:11 General appearance: Present: mild distress, A&O X 3 - Head Head exam: Present: atraumatic, normocephalic - Eye Eye exam: Present: PERRL, conjuntiva pink, sclera anicteric Pupils: Present: PERRL - Neck Neck exam general surgery: Present: supple, trachea midline. Absent: lymphadenopathy - Respiratory Respiratory exam: Present: rales, rhonchi. Absent: accessory muscle use, wheezes - Cardiovascular Cardiovascular exam: Present: +S1, +S2, tachycardia. Absent: diastolic murmur, gallop, rubs, systolic murmur - GI/Abdominal GI/Abdominal exam: Present: normal bowel sounds, soft, no peritoneal signs. Absent: distended, tenderness - Extremities Exam Extremities exam: Present: warm, radial pulses palpable and symmetrical. Absent : calf tenderness, cyanotic, pedal edema - Neurological Exam Neurological exam: Present: CN II-XII intact, oriented X3, no focal deficits. Absent: pronater drift, facial droop, speech deficit - Skin Skin exam: Present: dry, intact Internal Medicine: Result - Labs CBC & Chem 7: 07/22/17 07:54 07/21/17 00:21 Labs: Short CBC 07/22/17 Range/Units 07:54 WBC 25.0 H (4.3-11.1) K/mcL Hgb 12.4 L (12.9-16.9) g/dL Hct 38.2 (37.5-50.1) % Plt Count 304 (140-400) K/mcL - ABG Interpretation ABG results: PT/INR, D-dimer PT 20.3 Seconds (9.4-12.1) H 07/20/17 13:41 D-Dimer 3317 ng/mLFEU (0-500) H 07/20/17 05:24 - Impressions Impressions Abdomen Ultrasound 07/21/17 15:30 IMPRESSION: 1. Hepatic steatosis. 2. Mild gallbladder sludge. 3. Non visualization of the pancreas. D/ / Tess Cabrera MD / Tess Cabrera MD Interpreting Provider: Tess Cabrera MD Consult Discharge Plan - Plan Referrals: Maile Quiroz BASKET HAND BRAIDER [Primary Care Provider] -
[2017-07-22 09:05] LABS: BUN/Creatinine Ratio 23 (6-26); Blood Urea Nitrogen 18 mg/dL (6-20); Carbon Dioxide 22 mEq/L (23-29); Chloride 106 mEq/L (98-107); Glucose 109 mg/dL (70-105); Osmolality,Calculated 284 (280-300); Sodium 136 mEq/L (136-145); eGFR For African Americans > 60 (> 60); eGFR For Non-African Americans > 60 (> 60)
--- NOTE | 2017-07-22 11:24 | Pulmonology Consult Note ---
Date of Encounter: 07/22/17 Time of Encounter: 09:30 Assessment and Plan (1) Acute respiratory failure with hypoxia Current Visit: Yes Status: Acute Patient Acute respiratory failure mainly contributed by secondary bacterial following a influenza viral pneumonia . Reviewing the CT chest the lung parenchyma showed air trapping most likely emphsyematous changes will need outpatient evaluation patient is a former smoker of 20 years . To see managment under pneumonia (2) Pneumonia Current Visit: Yes Status: Acute Agree with broad spectrum antibiotics since he might have Undiagnosed COPD it is reasonable to add steroids , to continue incentive spirometry encouraged coughing . RT to do deep nasotracheal suctioning will collect sputum culture . Qualifiers: Pneumonia type: due to unspecified organism Laterality: right Lung location: lower lobe of lung Qualified Code(s): J18.1 - Lobar pneumonia, unspecified organism (3) Suspected chronic obstructive pulmonary disease based on initial evaluation Current Visit: Yes Status: Acute Reviewing CT Chest it looks like he might have undiagnosed COPD will start him on steroids to continue scheduled bronchodilators . For the doubtful filling defect which is in one of the branches left lower lobar branches of the pulmonary artery will repeat CTA in 48 hrs as long as the kidney function stable . History of Present Illness Consult date: 07/22/17 Requesting physician: Erika Castle Reason for consult: dyspnea, cough, pneumonia Chief complaint: Shortness of breadth cough and sputum production History of present illness: 61 year old male with past medical history nothing significant patient is a smoker of 20 years stopped smoking had a influenza pneumonia he didnt take his tamiflu course completely had recurrence of symptoms with increased shortness of breadth , cough and sputum production with fever with sepsis responded to IV fluids , pulm was consulted as acute hypoxic respiratory failure is not getting better . Patient had a CTA showed Right lower lobe consolidation with some doubtful filling defect in one of the left lower lobe branches Heme onc was consulted by the primary team who spoke with radiologist doesnt look like PE so the anticoagulant was stopped , patient is complaining of RUQ pain with ultrasound showed billiary sludge , has some right sided chest pain denies any left sided chest pain, has on and fever , denies any palpitations or syncope denies any headache or any other eyes symptoms , denies any focal neurological symptoms . Past Med Surg Social Fam HX - Past Medical History Medical history: cancer, other Psychiatric history: no psych history - Past Surgical History Surgical History: non-contributory - Social History Smoking Status: Never smoker Smokeless Tobacco Status: No Alcohol use: none Drug use: none Medications and Allergies Esomeprazole Magnesium [Nexium 24Hr] 20 mg PO DAILY 01/10/17 [History] Fish Oil/Dha/Epa [Fish Oil 1,200 mg Fish Oil] 1 tab PO DAILY 01/10/17 [History] Mv-Mn/FA/Vit K/Lycop/Lut/Coq10 [Daily Multivitamin Capsule] 1 tab PO DAILY 01/10 [History] Turmeric Root Extract [Turmeric] 500 mg PO DAILY 01/10/17 [History] 3 Allergy/AdvReac Type Severity Reaction Status Date / Time No Known Allergies Allergy Verified 01/10/17 12:27 All Systems: The remainder of the systems were reviewed and are negative Physical Examination Vital Signs: Vital Signs, Last 4 Hours Temp Pulse Resp BP Pulse Ox 07/22/17 09:10 94 07/22/17 08:11 98.2 F 114 18 171/99 94 07/22/17 07:42 16 93 Auscultation: bilateral: other (scattered rhonchi and crackles ) Gastrointestinal: hypoactive bowel sounds, soft, tender Results - Laboratory Findings CBC and BMP: 07/22/17 07:54 07/22/17 07:54 PT/INR, D-dimer PT 20.3 Seconds (9.4-12.1) H 07/20/17 13:41 D-Dimer 3317 ng/mLFEU (0-500) H 07/20/17 05:24 Abnormal lab findings: Abnormal lab results WBC 25.0 K/mcL (4.3-11.1) H 07/22/17 07:54 Hgb 12.4 g/dL (12.9-16.9) L 07/22/17 07:54 MCH 27.6 pg (28.0-33.3) L 07/22/17 07:54 Band Neutrophils % 16.0 % (0-4) H 07/20/17 05:29 Metamyelocytes % 2.0 % (0) H 07/20/17 05:29 Neutrophils # 17.2 K/mcL (1.6-8.9) H 07/20/17 05:29 Reactive Lymphocytes Present (Not Present) A 07/20/17 05:29 Toxic Granulation Present (Not Present) A 07/20/17 05:29 PT 20.3 Seconds (9.4-12.1) H 07/20/17 13:41 APTT 40.5 Seconds (26.0-36.0) H D 07/21/17 07:46 D-Dimer 3317 ng/mLFEU (0-500) H 07/20/17 05:24 Carbon Dioxide 22 mEq/L (23-29) L 07/22/17 07:54 Glucose 109 mg/dL (70-105) H 07/22/17 07:54 B-Natriuretic Peptide 226 pg/mL (Less than 100) H 07/21/17 00:21 Ur Specific [place] > 1.030 (1.010-1.025) H 07/20/17 20:15 Urine Protein 30 mg/dL (Neg-Trace) H 07/20/17 20:15 Urine Blood Small (Negative) H 07/20/17 20:15 Urine Microscopic RBC 3-5 per hpf (0-3) H 07/20/17 20:15 Urine Microscopic WBC 5-15 per hpf (0-3) H 07/20/17 20:15 Ur Squamous Epith Cells Moderate per lpf (None-Few) H 07/20/17 20:15 - Microbiology Findings Microbiology Findings: Microbiology, Last 48 Hours 07/20/17 20:15 Legionella Antigen - Final Urine,Clean Catch Streptococcus pneumoniae Antigen (M - Final - Clinical Findings Intake & Output: Intake & Output 07/21/17 07/22/17 07/22/17 23:59 07:59 15:59 Intake Total 575 / 575 100 / 100 0 / 0 Output Total 220 / 220 315 / 315 250 / 250 Balance 355 / 355 -215 / -215 -250 / -250 Weight 77.1 kg Consult Discharge Plan - Plan Referrals: Maile Quiroz, PARKING ENFORCER [Primary Care Provider] -
[2017-07-22 11:34] LABS: ABG Base Excess 0 mEq/L (-2 to 3); ABG HCO3 24 mEq/L (21-27); ABG Oxygen Saturation 97 % (95-98); ABG PCO2 37 mmHg (35-45); ABG PH 7.42 pH Units (7.32-7.45); ABG PO2 85 mmHg (85-104); ABG TCO2 25 mEq/L (20-26)
[2017-07-22] MEDS: MethylPREDNISolone 40 MG/ML VIAL IVP SCH ×3 (12:33→23:31)
[2017-07-22] MEDS: Levofloxacin 750 MG/150 ML 750 MG/150 ML BAG IVPB SCH (12:33)
[2017-07-22] MEDS: *HR* Heparin 5,000 UNIT/ML VIAL SQ SCH ×2 (14:15→20:13)
[2017-07-22] MEDS ORDERED: 0.9 % Sodium Chloride 1,000 ML IVC SCH (16:30)
--- NOTE | 2017-07-22 20:05 | Electrocardiograph Report ---
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
[2017-07-23] MEDS: Ipratropium/Albuterol Neb 3 ML IH SCH ×5 (03:49→19:52)
[2017-07-23] MEDS: *HR* Heparin 5,000 UNIT/ML VIAL SQ SCH ×2 (05:36→15:29)
[2017-07-23] MEDS: MethylPREDNISolone 40 MG/ML VIAL IVP SCH ×3 (05:36→17:25)
[2017-07-23 05:53] LABS: Hemoglobin 11.4 g/dL (12.9-16.9); Mean Platelet Volume 10.7 fL (9.4-12.4)
[2017-07-23 05:54] LABS: Hematocrit 34.9 % (37.5-50.1); Mean Corpuscular HGB Conc 32.7 g/dL (31.6-35.5); Mean Corpuscular Hemoglobin 27.2 pg (28.0-33.3); Mean Corpuscular Volume 83.3 fL (83.0-100.0); Platelet Count 287 K/mcL (140-400); Red Blood Count 4.19 M/mcL (4.19-5.50); Red Cell Distribution Width 13.6 % (11.5-14.5)
[2017-07-23] MEDS: GuaiFENesin/Dextromethorphan TABLET PO SCH (08:37)
[2017-07-23] MEDS: Piperacillin/Tazobactam 3.375 GM in 0.9 % Sodium Chloride Mini Bag 100 ML IVPB SCH ×2 (08:39→16:32)
--- NOTE | 2017-07-23 09:30 | Internal Med Progress Note ---
Date of Encounter: 07/23/17 Time of Encounter: 09:28 - Assessment and plan (1) Community acquired pneumonia Current Visit: Yes Status: Acute Assessment and plan: This is a significant pneumonia, with severe pain with parietal and visceral pleural inflammation. Continues to require IV pain pump. This appears to be day 2 of broad-spectrum antibiotics, I suspect is not considerably better in the next 24 hours he may require repeat CAT scan. Pulmonary remains on board. Blood cultures remain negative, again this may been precipitated by bout of influenza. Continuing respiratory precautions at this time. I did try to reassure him, that pneumonia can be severe and there he remains with DVT prophylaxis and GI prophylaxis. No change in the IV steroids today. remains a mortality rate. I am not really interested in the white count at this time it may take some time for that to come down. I think we will know he is improving by either imaging and/or decreased O2 needs and less pain. No change in IV steroids or the pain medication at this time Qualifiers: Laterality: right Lung location: lower lobe of lung Qualified Code(s): J18.1 - Lobar pneumonia, unspecified organism (2) Acute respiratory failure with hypoxia Current Visit: Yes Status: Acute Assessment and plan: Still with considerable O2 requirements on 4 L. Satting 92%. - Subjective Interval history: Sitting up in bed, still with significant right lower chest wall, pleuritic type pain. Requiring pain pump. His pain is unchanged for the last 2 days, really not coughing up anything, still with a dry cough. No change in his bowels, no abdominal pain. - Constitutional Vitals: Temp Pulse Resp BP Pulse Ox 97.5 F L 77 18 157/83 95 07/23/17 07:06 07/23/17 07:06 07/23/17 07:44 07/23/17 07:06 07/23/17 07:44 General appearance: Present: A&O X 3, answers questions appropriately Exam: Does have symptoms dyspnea with inspiratory type pain. - ENT ENT exam: Present: normal exam - Neck Neck exam general surgery: Present: supple, trachea midline - Respiratory Respiratory exam: Present: rhonchi, tachypnea. Absent: wheezes Additional comments: He asks considerable consolidation in right lower lung, the left lung appears clear. No friction rub noted. Again his effort is somewhat poor. - Cardiovascular Cardiovascular exam: Present: +S1, +S2, tachycardia - GI/Abdominal GI/Abdominal exam: Present: normal bowel sounds, soft, no peritoneal signs. Absent: splenomegaly, tenderness - Extremities Exam Extremities exam: Present: normal inspection, warm Internal Medicine: Result - Labs CBC & Chem 7: 07/23/17 05:29 07/22/17 07:54 Labs: Short CBC 07/23/17 Range/Units 05:29 WBC 25.6 H (4.3-11.1) K/mcL Hgb 11.4 L (12.9-16.9) g/dL Hct 34.9 L (37.5-50.1) % Plt Count 287 (140-400) K/mcL - ABG Interpretation ABG results: ABG ABG pH 7.42 pH Units (7.32-7.45) 07/22/17 11:17 ABG pCO2 37 mmHg (35-45) 07/22/17 11:17 ABG pO2 85 mmHg (85-104) 07/22/17 11:17 ABG O2 Saturation 97 % (95-98) 07/22/17 11:17 PT/INR, D-dimer PT 20.3 Seconds (9.4-12.1) H 07/20/17 13:41 D-Dimer 3317 ng/mLFEU (0-500) H 07/20/17 05:24 - VTE Documentation of Mechanical Device: Intermittent pneumatic compression device Consult Discharge Plan - Plan Referrals: Maile Quiroz, [facility] [Primary Care Provider] -
[2017-07-23] MEDS: Levofloxacin 750 MG/150 ML 750 MG/150 ML BAG IVPB SCH (10:57)
--- NOTE | 2017-07-23 13:21 | Pulmonology Progress Note ---
Date of Encounter: 07/23/17 Time of Encounter: 12:45 Assessment and Plan (1) Acute respiratory failure with hypoxia Status: Acute Patient has hypoxic respiratory failure is due to V/Q mismatch due to RLL pneumonia underlying undiagnosed COPD also plays a role . Patient most likely will need home oxygen on discharge . (2) Pneumonia Status: Acute Patient had Infleunza pneumonia with incomplete Tamiflu therapy now complicated by RLL bacterial pneumonia , Incentive Spirometry . If he coughs up send for sputum sample . To continue broad spectrum antibiotics Qualifiers: Pneumonia type: due to unspecified organism Laterality: right Lung location: lower lobe of lung Qualified Code(s): J18.1 - Lobar pneumonia, unspecified organism (3) Suspected chronic obstructive pulmonary disease based on initial evaluation Status: Acute Patient has a long standing smoking history of 20 years but he quit many years ago will continue bronchdodilators and steroids. Subjective Principal diagnosis: RLL pneumonia Interval history: Patient says he is slightly getting better not fast as he expected , i told him has COPD changes in the CT scan with possible viral pneumonia complicated by secondary bacterial pneumonia . Objective PUL Vital signs: Last Vital Signs Temp 98.3 F 07/23/17 10:34 Pulse 92 07/23/17 10:34 Resp 18 07/23/17 11:33 BP 148/80 07/23/17 10:34 Pulse Ox 94 07/23/17 11:33 Auscultation: right: other (some scattered crackles ) Gastrointestinal: hypoactive bowel sounds, tender (RUQ ) Results - Laboratory Findings CBC and BMP: 07/23/17 05:29 07/22/17 07:54 ABG ABG pH 7.42 pH Units (7.32-7.45) 07/22/17 11:17 ABG pCO2 37 mmHg (35-45) 07/22/17 11:17 ABG pO2 85 mmHg (85-104) 07/22/17 11:17 ABG O2 Saturation 97 % (95-98) 07/22/17 11:17 PT/INR, D-dimer PT 20.3 Seconds (9.4-12.1) H 07/20/17 13:41 D-Dimer 3317 ng/mLFEU (0-500) H 07/20/17 05:24 Abnormal lab findings: Abnormal lab results WBC 25.6 K/mcL (4.3-11.1) H 07/23/17 05:29 Hgb 11.4 g/dL (12.9-16.9) L 07/23/17 05:29 Hct 34.9 % (37.5-50.1) L 07/23/17 05:29 MCH 27.2 pg (28.0-33.3) L 07/23/17 05:29 Band Neutrophils % 16.0 % (0-4) H 07/20/17 05:29 Metamyelocytes % 2.0 % (0) H 07/20/17 05:29 Neutrophils # 17.2 K/mcL (1.6-8.9) H 07/20/17 05:29 Reactive Lymphocytes Present (Not Present) A 07/20/17 05:29 Toxic Granulation Present (Not Present) A 07/20/17 05:29 PT 20.3 Seconds (9.4-12.1) H 07/20/17 13:41 APTT 40.5 Seconds (26.0-36.0) H D 07/21/17 07:46 D-Dimer 3317 ng/mLFEU (0-500) H 07/20/17 05:24 Carbon Dioxide 22 mEq/L (23-29) L 07/22/17 07:54 Glucose 109 mg/dL (70-105) H 07/22/17 07:54 B-Natriuretic Peptide 226 pg/mL (Less than 100) H 07/21/17 00:21 Ur Specific Brush > 1.030 (1.010-1.025) H 07/20/17 20:15 Urine Protein 30 mg/dL (Neg-Trace) H 07/20/17 20:15 Urine Blood Small (Negative) H 07/20/17 20:15 Urine Microscopic RBC 3-5 per hpf (0-3) H 07/20/17 20:15 Urine Microscopic WBC 5-15 per hpf (0-3) H 07/20/17 20:15 Ur Squamous Epith Cells Moderate per lpf (None-Few) H 07/20/17 20:15 - Clinical Findings Intake & Output: Intake & Output 07/22/17 07/23/17 07/23/17 23:59 07:59 15:59 Intake Total 650 / 650 100 / 100 Output Total 1000 / 1000 455 / 455 Balance -350 / -350 -355 / -355 Weight 78.1 kg - VTE Documentation of Mechanical Device: Intermittent pneumatic compression device Consult Discharge Plan - Plan Referrals: Maile Quiroz, [facility] [Primary Care Provider] -
[2017-07-23 14:51] VITALS: BP 151/91
--- NOTE | 2017-07-23 15:38 | Event Note ---
Date of Encounter: 07/23/17 Time of Encounter: 15:36 Patient and his have decided to transfer care to [facility]. I have made phone call to transfer center, patient info given. His status is unchanged from this AM. [facility] to call back based on bed availability.I have notified patient with Nurse in the room.
[2017-07-23] MEDS ORDERED: Aminoglycoside Consult 1 EACH MC ONE (18:59)
--- NOTE | 2017-07-24 08:53 | Discharge Summary ---
<Maile Quiroz - Last Filed: 07/24/17 19:04> Orders not resulted at time of discharge: Pending orders 07/22/17 11:41 Culture,Sputum with Gram Stain [RM] Stat 07/22/17 12:11 Mycoplasma pneumoniae IgG IgM Routine Date of Encounter: 07/24/17 Hospital course: Mr. Mejía is a 61 year old male - Time Spent with Patient Total time spent providing and/or coordinating discharge services: - Discharge Medications Home Medications: Esomeprazole Magnesium [Nexium 24Hr] 20 mg PO DAILY 01/10/17 [History] Fish Oil/Dha/Epa [Fish Oil 1,200 mg Fish Oil] 1 tab PO DAILY 01/10/17 [History] Mv-Mn/FA/Vit K/Lycop/Lut/Coq10 [Daily Multivitamin Capsule] 1 tab PO DAILY 01/10 [History] Turmeric Root Extract [Turmeric] 500 mg PO DAILY 01/10/17 [History] Allergies/Adverse Reactions: 3 Allergy/AdvReac Type Severity Reaction Status Date / Time No Known Allergies Allergy Verified 01/10/17 12:27 Date of admission: 07/20/17 08:14 Primary care physician: Maile Quiroz CNP Consults: 07/20/17 09:49 Consult to Nutrition [CONS] Routine Comment: Consulting Provider: NUTRITION Reason for Dietary Consult: MST Score 07/21/17 11:15 Consult to Oncology [CONS] Routine Consulting Provider: [facility] Reason for Consult: unprovoked DVT Call Completed: Yes 07/22/17 09:18 Consult to Pulmonology [CONS] Routine Consulting Provider: [facility] Reason for Consult: acute resp failure with hypoxia Call Completed: Yes - Constitutional Vitals: Temp Pulse Resp BP Pulse Ox 97.8 F 79 18 151/91 95 07/23/17 14:49 07/23/17 14:49 07/23/17 15:45 07/23/17 14:49 07/23/17 15:45 - Patient Status Disposition: Transfer Other Condition: Fair - Discharge Instructions Follow Up With: Maile Quiroz CNP [Primary Care Provider] - <Dilshad Zafar - Last Filed: 07/25/17 14:41> - NOTES TO OUTPATIENT PROVIDER Notes to Outpatient Provider: Per the [facility] discharging team. Orders not resulted at time of discharge: Pending orders 07/21/17 11:02 Surgical Pathology [PTH] Routine 07/22/17 11:41 Culture,Sputum with Gram Stain [RM] Stat 07/22/17 12:11 Mycoplasma pneumoniae IgG IgM Routine Date of Encounter: 07/25/17 (Transferred to [facility] yesterday) Time of Encounter: 08:51 - Discharge Diagnosis (1) Sepsis due to pneumonia Priority: Primary Status: Acute (2) Community acquired pneumonia Priority: Secondary Status: Acute Comments: He continues to show consolidation in the right lower lobe with considerable pleuritic pain. At his request, will transfer to [facility] for further care. He was not unstable upon discharge, and really for the last 2 days and quite stable area Qualifiers: Laterality: right Lung location: lower lobe of lung Qualified Code(s): J18.1 - Lobar pneumonia, unspecified organism (3) Acute respiratory failure with hypoxia Priority: Secondary Status: Acute Comments: Upon discharge to [facility], he required 3-4 L of O2. (4) Influenza Priority: Secondary Status: Acute Hospital course: Mr. Mejía is a 61 year old male presented to the emergency room fairly ill on around 07/20/17. Apparently almost 10 days ago, was given diagnosis of influenza, but admits not taking the full prescription. Prior to coming to the emergency room, he developed acute onset of pleuritic pain shortness of breath and just not feeling well. In the ER, he was found to have fever and tachycardia and was considered septic with pneumonia at that time. He did have initial slight elevation of troponin, this was thought to be due to his pneumonia and there is no cardiac event appreciated. There is also some concern as to whether or not he may have had a PE or not, hematology was consult , and this is thought to be not consistent with a pulmonary emboli. He was given broad-spectrum antibiotics for 3 days that he was here, he continued to show on his exam consolidation in right lower lobe, his pain was significant requiring a Dilaudid pain pump as well. On final day at [facility], he requested transfer to [facility] after discussion with he and his . Also should be noted that pulmonary was consulted as well. Discharge discussed with: patient Time spent discussing smoking cessation with patient: more than 10 minutes - Time Spent with Patient Total time spent providing and/or coordinating discharge services: Less than 30 minutes Date of admission: 07/20/17 08:14 Primary care physician: Maile Quiroz CNP Consults: 07/20/17 09:49 Consult to Nutrition [CONS] Routine Comment: Consulting Provider: NUTRITION Reason for Dietary Consult: MST Score 07/21/17 11:15 Consult to Oncology [CONS] Routine Consulting Provider: [facility] Reason for Consult: unprovoked DVT Call Completed: Yes 07/22/17 09:18 Consult to Pulmonology [CONS] Routine Consulting Provider: [facility] Reason for Consult: acute resp failure with hypoxia Call Completed: Yes Anticipated date of discharge: 07/23/17 - Constitutional Vitals: Temp Pulse Resp BP Pulse Ox 97.8 F 79 18 151/91 95 07/23/17 14:49 07/23/17 14:49 07/23/17 15:45 07/23/17 14:49 07/23/17 15:45 General appearance: Present: A&O X 3, answers questions appropriately - VTE Documentation of Mechanical Device: Intermittent pneumatic compression device
[2017-07-25 08:41] LABS: Mycoplasma pneumoniae IgG 0.26 U/L (<=0.09)
== END 2017-07-23 19:00 | disposition other institution (70) | DRG 871 ==
LOC: EMEROO 03:58 → 2ANU 03:58 → SUATTDRO 08:14 → 2ANU 09:00
PROVIDERS: ADMIT Registered Nurse; ATTEND Registered Nurse